=== PATIENT | male | born 1970 | race Caucasian/White ===

== ENCOUNTER 2017-12-04 09:27 | Outpatient (CLI) | payer OTHER | END 2017-12-04 09:28 | disposition home or self-care (01) | LOC: SC 09:27 | PROVIDERS: ATTEND Nurse Practitioner Family | DX: G47.33 Obstructive sleep apnea (adult) (pediatric) (principal) | CPT/HCPCS: 99203; 99212 ==

== ENCOUNTER 2018-01-03 19:28 | Outpatient (CLI) | payer OTHER | END 2018-01-03 19:29 | disposition home or self-care (01) | LOC: SC 19:28 | PROVIDERS: ATTEND Internal Medicine Pulmonary Disease | DX: G47.33 Obstructive sleep apnea (adult) (pediatric) (principal) | CPT/HCPCS: 95811 ==

== ENCOUNTER 2018-01-28 08:23 | Outpatient (CLI) | payer OTHER | END 2018-01-28 08:24 | disposition home or self-care (01) | LOC: SC 08:23 | PROVIDERS: ATTEND Internal Medicine Pulmonary Disease | DX: G47.33 Obstructive sleep apnea (adult) (pediatric) (principal) | CPT/HCPCS: 99212; 99213 ==

== ENCOUNTER 2018-04-24 16:00 | Outpatient (CLI) | payer OTHER | END 2018-04-24 16:01 | disposition home or self-care (01) | LOC: SC 16:00 | PROVIDERS: ATTEND Nurse Practitioner Family | DX: G47.33 Obstructive sleep apnea (adult) (pediatric) (principal) | CPT/HCPCS: 99212; 99214 ==

== ENCOUNTER 2018-06-06 08:40 | Outpatient (CLI) | payer OTHER | END 2018-06-06 08:41 | disposition home or self-care (01) | LOC: SC 08:40 | PROVIDERS: ATTEND Nurse Practitioner Family | DX: G47.33 Obstructive sleep apnea (adult) (pediatric) (principal) | CPT/HCPCS: 99212; 99214 ==

== ENCOUNTER 2019-06-13 16:58 | Emergency (ER) | payer OTHER ==
--- NOTE | 2019-06-13 17:32 | ED Physician Documentation ---
History of Present Illness - Stated complaint Stated Complaint: FEELING FAINT, NAUSEA, FINGERTIPS TINGLING - Chief complaint Chief Complaint: Neuro - History obtained from History obtained from: Patient - Additonal information Additional information: This is a 48-year-old gentleman who has a history of potentially borderline diabetes, hypothyroidism, and prostatic hypertrophy. He takes a couple of blood pressure medicines, Synthroid, and has been on Flomax for about 8 months. Today he had an episode, he started in the grocery store. He felt sweaty and nauseous. Subsequently felt dizzy and got tunnel vision and then felt "out of it" without being unconscious for about 5 minutes. It was associated with some fingertip numbness and tingly episodes. He did note that it got worse while trying to have a bowel movement. He had a similar episode about a week and a half ago. It also started with a bowel movement. He has had resolving diarrhea over that same timeframe but feels like he has been drinking plenty of water. His stools are formed now though. He denies dark or tarry stools. No fevers. No chest pain. Review of Systems Constitutional: reports: Sweats. denies: Fever, Chills Nose: denies: Rhinorrhea / runny nose, Congestion Cardiac: denies: Chest pain / pressure, Palpitations Respiratory: denies: Dyspnea, Cough GI: reports: Nausea, Diarrhea. denies: Abdominal Pain, Vomiting PD PAST MEDICAL HISTORY - Past Surgical History Past Surgical History: No - Present Medications Home Medications: Ambulatory Orders Medication Instructions Recorded Confirmed Dextroamphetamine/Amphetamine 10 mg PO 06/13/19 [Adderall 10 mg Tablet] Levothyroxine Sodium [Synthroid] 125 mcg ORAL DAILY 06/13/19 06/13/19 Losartan [Cozaar] 50 mg ORAL DAILY 06/13/19 06/13/19 Tamsulosin HCl [Flomax] 0.4 mg PO 06/13/19 - Allergies Allergies/Adverse Reactions: Allergies Allergy/AdvReac Type Severity Reaction Status Date / Time Penicillins Allergy Unknown Unknown Verified 06/13/19 17:09 - Social History Does the pt smoke?: No Smoking Status: Never smoker Does the pt drink ETOH?: No Does the pt have substance abuse?: No - Immunizations Immunizations are current?: Yes - POLST Patient has POLST: No PD ED PE NORMAL - Vitals Vital signs reviewed: Yes - General General: Alert and oriented X 3, No acute distress - HEENT HEENT: PERRL, EOMI - Neck Neck: Supple, no meningeal sign, No bony TTP - Cardiac Cardiac: RRR, No murmur - Respiratory Respiratory: No respiratory distress, Clear bilaterally - Abdomen Abdomen: Normal bowel sounds, Soft, Non tender - Back Back: No spinal TTP - Derm Derm: No rash - Extremities Extremities: No edema, No calf tenderness / cord - Neuro Neuro: Alert and oriented X 3, Normal speech Results - Vitals Vitals: Vital Signs - 24 hr 06/13/19 17:06 Temperature 36.0 C L Heart Rate 93 Respiratory 18 Rate Blood Pressure 148/85 H O2 Saturation 100 Oxygen O2 Source Room air - EKG (time done) 1723 Rate: Rate (enter#) (8.) Rhythm: NSR Rush: Normal Intervals: Normal TX, Other (Borderline LVH) Ischemia: Normal ST segments Computer interpretation: Agree with computer - Labs Labs: Laboratory Tests 06/13/19 06/13/19 06/13/19 17:25 17:25 17:25 WBC 9.6 RBC 5.30 Hgb 16.0 Hct 48.1 MCV 90.8 MCH 30.2 MCHC 33.3 RDW 13.2 Plt Count 274 MPV 9.6 Neut # (Auto) 6.5 Lymph # (Auto) 2.1 [place] # (Auto) 0.8 Eos # (Auto) 0.1 Baso # (Auto) 0.1 Absolute Nucleated RBC 0.00 Nucleated RBC % 0.0 Sodium 134 L Potassium 3.7 Chloride 99 L Carbon Dioxide 24 Anion Gap 11.0 BUN 22 H Creatinine 1.0 Estimated GFR (MDRD) 80 L Glucose 116 H Calcium 9.4 Total Bilirubin 0.5 AST 18 ALT 26 Alkaline Phosphatase 82 Troponin I High Sens 2.9 Total Protein 8.0 Albumin 4.1 Globulin 3.9 Albumin/Globulin Ratio 1.1 Lipase 33 PD MEDICAL DECISION MAKING - ED course ED course: 48-year-old gentleman with a dizzy episode, fingertip tingling could have been anxiety, but he did not really feel anxious or short of breath with it. It started with sweats and nausea so we were concerned about an atypical heart issue, EKG and troponin testing were negative. He is asymptomatic throughout his ED stay. Departure - Departure Disposition: Home, Self Care Clinical Impression: Dizziness, Dehydration Condition: Good Record reviewed to determine appropriate education?: Yes Instructions: ED Dehydration, ED Dizziness [facility] Comments: We checked you for signs of a heart attack, these were negative. The only thing really notable was that your BUN was up at 22 and your sodium was down to 134. These are pretty mild abnormalities that are consistent with mild dehydration. Drink plenty of fluids including something with electrolytes and salt. Follow- up with your doctor for further evaluation and treatment and return for new or recurrent symptoms.
[2019-06-13 17:33] LABS: BASOPHILS # (AUTO) 0.1 10^3/uL (0.0-0.1); BASOPHILS % (AUTO) 0.6 %; EOSINOPHILS # (AUTO) 0.1 10^3/uL (0.0-0.7); EOSINOPHILS % (AUTO) 1.1 %; LYMPHOCYTES # (AUTO) 2.1 10^3/uL (1.5-3.5); LYMPHOCYTES % (AUTO) 21.9 %; MEAN CORPUSCULAR HEMOGLOBIN 30.2 pg (27.0-31.0); MEAN CORPUSCULAR HGB CONC 33.3 g/dL (32.0-36.0); MEAN CORPUSCULAR VOLUME 90.8 fL (80.0-94.0); MEAN PLATELET VOLUME 9.6 fL (7.4-11.4); MONOCYTES # (AUTO) 0.8 10^3/uL (0.0-1.0); MONOCYTES % (AUTO) 8.4 %; NEUTROPHILS # (AUTO) 6.5 10^3/uL (1.5-6.6); NEUTROPHILS % (AUTO) 67.4 %; PLT - PLATELET COUNT 274 10^3/uL (130-450); RED CELL DISTRIBUTION WIDTH 13.2 % (12.0-15.0); WHITE BLOOD COUNT 9.6 x10^3/uL (4.8-10.8)
[2019-06-13 17:44] LABS: ALBUMIN 4.1 g/dL (3.2-5.5); ALBUMIN/GLOBULIN RATIO 1.1 (1.0-2.2); BILIRUBIN,TOTAL 0.5 mg/dL (0.2-1.0); CALCIUM 9.4 mg/dL (8.5-10.3)
[2019-06-13 18:11] VITALS: BP 145/92
== END 2019-06-13 18:07 | disposition home or self-care (01) ==
LOC: ED 16:58
DX: R42 Dizziness and giddiness (principal); E86.0 Dehydration; I10 Essential (primary) hypertension
CPT/HCPCS: 36415; 80053; 83690; 84484; 85025; 93005; 99283; 99284

== ENCOUNTER 2023-07-31 09:17 | Outpatient (CLI) | payer OTHER ==
--- NOTE | 2023-07-31 15:05 | MRI Report ---
PROCEDURE: Shoulder RT WO INDICATIONS: RIGHT SHOULDER PAIN TECHNIQUE: Noncontrast oblique coronal T2 fast spin echo with fat saturation, oblique sagittal T1 spin echo and T2 fast spin echo with fat saturation, axial T1 spin echo and T2 fast spin echo with fat saturation t hrough the shoulder. COMPARISON: None. FINDINGS: Image quality: Excellent. Rotator cuff: Low-grade articular and bursal surface partial-thickness tear involving distal supraspi natus extending to musculotendinous junction. Low to moderate grade articular surface partial-thickne ss involving distal infraspinatus at its insertion on humeral head is seen. Low-grade partial thickne ss involving superior fibers of distal subscapularis. No full-thickness rotator cuff tendon rupture. No significant rotator cuff muscle atrophy on sagittal images. Bones and bursae: There is no marrow edema. No acute fracture or dislocation. Moderate acromioclavicu lar joint osteoarthritic changes are seen. Small to moderate amount of joint fluid and small subacrom ial subdeltoid bursal fluid is seen, no loose bodies. Capsule and soft tissues: There is fraying of superior anterior labrum with T2 hyperintense signal dc ggestive of superior anterior labral tear. The long head of the biceps tendon appears thickened. The rotator interval appears normal, without fibrosis. The coracohumeral ligament is normal in thickness . IMPRESSION: 1. Low-grade articular and bursal surface partial-thickness tear involving distal supraspinatus exten ding to musculotendinous junction. Low to moderate grade articular surface partial-thickness involvin g distal infraspinatus. Low-grade partial thickness involving superior fibers of distal subscapularis . No full-thickness rotator cuff tendon rupture. 2. Moderate acromioclavicular joint osteophyte is. No fracture or dislocation. Small to moderate amou nt of joint effusion and small amount of subacromial subdeltoid bursal fluid. No loose bodies. 3. Suggestion of superior anterior labral tear. 4. Proximal long head of biceps tendinosis. Reviewed by: Santiago Macedo MD on 07/31/2023 3:04 PM PDT Approved by: Santiago Macedo MD on 07/31/2023 3:04 PM PDT Station ID: [id number]
== END 2023-07-31 09:18 | disposition home or self-care (01) ==
LOC: DI 09:17
PROVIDERS: ATTEND Nurse Practitioner Family
DX: M75.111 Incomplete rotator cuff tear or rupture of right shoulder, not specified as traumatic (principal); M25.711 Osteophyte, right shoulder; M25.411 Effusion, right shoulder; M67.813 Other specified disorders of tendon, right shoulder